=== PATIENT | female | born 1985 | race Caucasian/White ===

== ENCOUNTER 2017-01-22 07:49 | Emergency (ER) | payer MEDICAID, OTHER ==
[~2017-01-22] VITALS: Ht 157.5 cm; Wt 7.2 kg
[2017-01-22] MEDS ORDERED: ONDANSETRON 2MG/ML, 2ML ONE (08:14)
[2017-01-22] MEDS ORDERED: MORPHINE SULFATE 4 MG/ML, 1ML ONE ×2 (08:14→08:51)
[2017-01-22] MEDS: MORPHINE SULFATE 4 MG/ML, 1ML IVPush PRN ×2 (08:24→08:56)
[2017-01-22] MEDS ORDERED: ONDANSETRON 2MG/ML, 2ML IVPush ONE (08:30)
[2017-01-22] MEDS ORDERED: SODIUM CHLORIDE FLUSH 10ML SYR IVF ONE (08:30)
[2017-01-22] MEDS ORDERED: SODIUM CHLORIDE 0.9% 1,000ML IVBOLUS ONE (08:30)
[2017-01-22 08:47] LABS: BLOOD UREA NITROGEN 7 mg/dL (7-18)
[2017-01-22 08:54] LABS: ASPARTATE AMINO TRANSFERASE 12 U/L (15-37)
[2017-01-22 10:06] LABS: PATH.CAST-FLAG NOT PRESENT; SPERM-FLAG NOT PRESENT; SRC-FLAG NOT PRESENT; XTAL-FLAG NOT PRESENT; YLC-FLAG NOT PRESENT
[2017-01-22] MEDS ORDERED: POTASSIUM CHLORIDE 20 MEQ TAB.ER.PRT PO ONE (10:30)
[2017-01-22] MEDS ORDERED: POTASSIUM CHLORIDE 20 MEQ TAB.ER.PRT ONE (11:01)
[2017-01-22 11:04] VITALS: BP 125/85
== END 2017-01-22 11:13 | disposition home or self-care (01) ==
LOC: ED 09:24
DX: N20.1 Calculus of ureter (principal); K52.9 Noninfective gastroenteritis and colitis, unspecified; Z88.6 Allergy status to analgesic agent
CPT/HCPCS: 36415; 80053; 81001; 83690; 84703; 85025; 87086; 96361; 96374; 96375; 96376; 99285; J2405; J7030

== ENCOUNTER 2018-04-14 09:11 | Emergency (ER) | payer OTHER ==
[~2018-04-14] VITALS: Ht 157.5 cm; Wt 86.0 kg
[2018-04-14] MEDS ORDERED: KETOROLAC 30 MG/1 ML IVPush ONE (09:30)
[2018-04-14] MEDS ORDERED: SODIUM CHLORIDE FLUSH 10ML SYR IVF ONE (09:30)
[2018-04-14] MEDS ORDERED: SODIUM CHLORIDE 0.9% 1,000ML IVBOLUS ONE (09:30)
[2018-04-14] MEDS ORDERED: FAMOTIDINE 20 MG/2 ML IVP ONE (09:30)
[2018-04-14] MEDS ORDERED: ONDANSETRON 2MG/ML, 2ML IVPush ONE (09:30)
[2018-04-14] MEDS ORDERED: ONDANSETRON 2MG/ML, 2ML ONE (09:46)
[2018-04-14] MEDS ORDERED: KETOROLAC 30 MG/1 ML ONE (09:46)
[2018-04-14] MEDS ORDERED: MORPHINE SULFATE 4 MG/ML, 1ML ONE ×2 (09:46→12:10)
[2018-04-14] MEDS ORDERED: FAMOTIDINE 20 MG/2 ML ONE (09:47)
[2018-04-14 09:53] LABS: BASOPHILS # (AUTO) 0.05 x10^3/uL (0-0.1); BASOPHILS % (AUTO) 0 % (0-1); EOSINOPHILS # (AUTO) 0.01 x10^3/uL (0-0.4); EOSINOPHILS % (AUTO) 0 % (1-7); LYMPHOCYTES # (AUTO) 2.02 x10^3/uL (1-3.4); LYMPHOCYTES % (AUTO) 12 % (22-44); MD NO; MEAN CORPUSCULAR HEMOGLOBIN 29.8 pg (27.0-34.8); MEAN CORPUSCULAR HGB CONC 33.9 g/dL (32.4-35.8); MEAN CORPUSCULAR VOLUME 87.9 fL (80-100); MEAN PLATELET VOLUME 6.6 fL (7.4-10.4); MONOCYTES # (AUTO) 0.33 x10^3/uL (0.2-0.8); MONOCYTES % (AUTO) 2 % (2-9); NEUTROPHILS # (AUTO) 14.19 x10^3/uL (1.8-6.8); NEUTROPHILS % (AUTO) 86 % (42-75); PLATELET COUNT 361 x10^3/uL (130-400); RED BLOOD COUNT 5.02 x10^6/uL (3.82-5.3); RED CELL DISTRIBUTION WIDTH 13.5 % (9.6-15.2)
[2018-04-14] MEDS: MORPHINE SULFATE 4 MG/ML, 1ML IVPush PRN ×2 (09:56→12:26)
[2018-04-14 10:06] LABS: ALANINE AMINOTRANSFERASE 37 U/L (12-78); ANION GAP 8 mmol/L (5-15); CALCIUM 8.6 mg/dL (8.5-10.1); CHLORIDE 108 mmol/L (98-107); CREATININE 0.78 mg/dL (0.55-1.02)
[2018-04-14 10:11] LABS: ALKALINE PHOSPHATASE 90 U/L (45-117); BILIRUBIN,TOTAL 0.4 mg/dL (0.2-1.0); TOTAL PROTEIN 7.9 g/dL (6.4-8.2)
[2018-04-14 12:41] VITALS: BP 119/84
[2018-04-14 13:05] LABS: MICROSCOPIC INDICATED
[2018-04-14 13:21] LABS: CULTURE INDICATED? NO
== END 2018-04-14 13:26 | disposition home or self-care (01) ==
LOC: ED 09:49
DX: K80.20 Calculus of gallbladder without cholecystitis without obstruction (principal)
CPT/HCPCS: 36415; 76700; 80053; 81001; 83690; 84703; 85025; 96361; 96374; 96375; 96376; 99285; J2405; J7030; S0028

== ENCOUNTER 2018-08-30 15:26 | Emergency (ER) | payer OTHER ==
[~2018-08-30] VITALS: Ht 157.5 cm; Wt 88.0 kg
[2018-08-30] MEDS ORDERED: FAMOTIDINE 20 MG/2 ML ONE (15:56)
[2018-08-30] MEDS ORDERED: ONDANSETRON ODT 4 MG ONE (15:56)
[2018-08-30] MEDS ORDERED: SODIUM CHLORIDE 0.9% 1,000ML IVBOLUS ONE (16:00)
[2018-08-30] MEDS ORDERED: SODIUM CHLORIDE FLUSH 10ML SYR IVF ONE (16:00)
[2018-08-30] MEDS ORDERED: FAMOTIDINE 20 MG/2 ML IVP ONE (16:00)
[2018-08-30] MEDS ORDERED: ONDANSETRON 2MG/ML, 2ML IVPush ONE (16:00)
[2018-08-30] MEDS ORDERED: ONDANSETRON 2MG/ML, 2ML ONE (16:03)
--- NOTE | 2018-08-30 16:10 | NUR ---
PATIENT UP TO BR WITHOUT ASSIT FOR UA COLLECTION
[2018-08-30 16:22] LABS: ALANINE AMINOTRANSFERASE 33 U/L (12-78); ANION GAP 10 mmol/L (5-15); BASOPHILS # (AUTO) 0.01 x10^3/uL (0-0.1); BASOPHILS % (AUTO) 0 % (0-1); CALCIUM 8.7 mg/dL (8.5-10.1); CHLORIDE 108 mmol/L (98-107); EOSINOPHILS # (AUTO) 0.16 x10^3/uL (0-0.4); EOSINOPHILS % (AUTO) 1 % (1-7); LYMPHOCYTES # (AUTO) 2.07 x10^3/uL (1-3.4); LYMPHOCYTES % (AUTO) 14 % (22-44); MD NO; MEAN CORPUSCULAR HGB CONC 32.9 g/dL (32.4-35.8); MEAN CORPUSCULAR VOLUME 88.2 fL (80-100); MEAN PLATELET VOLUME 6.8 fL (7.4-10.4); MONOCYTES # (AUTO) 0.54 x10^3/uL (0.2-0.8); MONOCYTES % (AUTO) 4 % (2-9); NEUTROPHILS # (AUTO) 12.11 x10^3/uL (1.8-6.8); NEUTROPHILS % (AUTO) 81 % (42-75); PLATELET COUNT 354 x10^3/uL (130-400); RED BLOOD COUNT 5.41 x10^6/uL (3.82-5.3); RED CELL DISTRIBUTION WIDTH 13.9 % (9.6-15.2)
[2018-08-30 16:24] LABS: MICROSCOPIC INDICATED
[2018-08-30 16:25] LABS: ALKALINE PHOSPHATASE 101 U/L (45-117); BILIRUBIN,TOTAL 0.4 mg/dL (0.2-1.0); CREATININE 0.99 mg/dL (0.55-1.02); TOTAL PROTEIN 8.4 g/dL (6.4-8.2)
--- NOTE | 2018-08-30 16:28 | NUR ---
PATIENT TO RAD
[2018-08-30 16:34] LABS: CULTURE INDICATED? NO
[2018-08-30] MEDS ORDERED: KETOROLAC 30 MG/1 ML ONE (16:41)
[2018-08-30] MEDS ORDERED: KETOROLAC 30 MG/1 ML IVPush ONE (17:00)
--- NOTE | 2018-08-30 17:11 | NUR ---
PATIENT TO CT SCAN
--- NOTE | 2018-08-30 17:22 | NUR ---
PATIENT REPORTS PAIN IS NOW 0/10. PATIENT IS RESTING. AWAITING CT RESULTS.
--- NOTE | 2018-08-30 18:40 | NUR ---
Discharge instructions discussed with patient, verbalizes understanding. Prescriptions provided to patient with instruction for use, patient instructed not to drive while taking narcotics, verbalizes understanding. Patient ambulates with steady gait to discharge desk in no acute distress with significant other.
[2018-08-30 18:42] VITALS: BP 130/85
== END 2018-08-30 18:44 | disposition home or self-care (01) ==
LOC: ED 16:56
DX: N20.2 Calculus of kidney with calculus of ureter (principal)
CPT/HCPCS: 36415; 74021; 74176; 80053; 81001; 83690; 85025; 96361; 96374; 96375; 99284; J1885; J2405; J3490; J7030

== ENCOUNTER 2019-04-01 15:38 | Emergency (ER) | payer OTHER ==
[~2019-04-01] VITALS: Ht 157.5 cm; Wt 81.7 kg
[2019-04-01 15:56] VITALS: BP 159/117
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
[2019-04-01] MEDS ORDERED: ONDANSETRON ODT 4 MG ONE (16:36)
[2019-04-01] MEDS ORDERED: OXYcodone/APAP 5/325MG TABLET ONE (16:36)
--- NOTE | 2019-04-01 16:40 | NUR ---
Orders received; medications given for pain and nausea. Waiting for radiology.
[2019-04-01] MEDS ORDERED: OXYcodone/APAP 5/325MG TABLET PO ONE (17:00)
[2019-04-01] MEDS ORDERED: ONDANSETRON ODT 4 MG PO ONE (17:00)
== END 2019-04-01 18:28 | disposition home or self-care (01) ==
LOC: ED 18:21
DX: S16.1XXA Strain of muscle, fascia and tendon at neck level, initial encounter (principal); V29.88XA Motorcycle rider (driver) (passenger) injured in other specified transport accidents, initial encounter; Y93.89 Activity, other specified; Y92.89 Other specified places as the place of occurrence of the external cause; Y99.8 Other external cause status
CPT/HCPCS: 70450; 71046; 72050; 73140; 99284; Q0162

== ENCOUNTER 2019-04-14 12:34 | Outpatient (CLI) | payer OTHER | END 2019-04-14 23:59 | disposition home or self-care (01) | LOC: CFH 12:34 | PROVIDERS: ATTEND Chiropractor | DX: S23.3XXA Sprain of ligaments of thoracic spine, initial encounter (principal); S33.5XXA Sprain of ligaments of lumbar spine, initial encounter; S33.8XXA Sprain of other parts of lumbar spine and pelvis, initial encounter; S33.6XXA Sprain of sacroiliac joint, initial encounter; S43.402A Unspecified sprain of left shoulder joint, initial encounter; V89.2XXA Person injured in unspecified motor-vehicle accident, traffic, initial encounter; Y93.9 Activity, unspecified; Y92.89 Other specified places as the place of occurrence of the external cause; Y99.8 Other external cause status | CPT/HCPCS: 72072; 72100; 72170 ==

== ENCOUNTER 2019-07-29 06:31 | Emergency (ER) | payer OTHER ==
[~2019-07-29] VITALS: Ht 157.5 cm; Wt 83.8 kg
[2019-07-29] MEDS ORDERED: TOPI100C6 PO (06:47)
[2019-07-29] MEDS ORDERED: NITR100C56 PO (06:47)
--- NOTE | 2019-07-29 06:55 | NUR ---
Reports received assumed patient care. Patient in bed watching tv. NAD noted.
--- NOTE | 2019-07-29 08:14 | NUR ---
PATIENT TO ULTRASOUND AND RETURNED. NAD NOTED. VSS
[2019-07-29 09:13] VITALS: BP 122/66
--- NOTE | 2019-07-29 09:14 | NUR ---
pATIENT DISCHARGED HOME, DISCHARGE INSTRUCTIONS PROVIDED ALL QUESTIONS AND CONCERNS ADDRESSED. Patient educated on the use of medication. Verbalized understanding. Ambulatory with steady gait. NAD noted. VSS
[2019-07-29 11:01] LABS: CULTURE INDICATED? YES; MICROSCOPIC AUTO
== END 2019-07-29 09:26 | disposition home or self-care (01) ==
LOC: ED 06:54
DX: N30.00 Acute cystitis without hematuria (principal); N83.291 Other ovarian cyst, right side
CPT/HCPCS: 76830; 81001; 87086; 99284